=== PATIENT | male | born 1970 | race Caucasian/White ===

== ENCOUNTER → 2019-02-24 | Outpatient (CLI) | payer BC ==
--- NOTE | 2019-02-24 16:42 | XR ---
EXAMINATION TYPE: XR chest 2V DATE OF EXAM: 02/24/2019 COMPARISON: NONE HISTORY: Chest pain and shortness of breath TECHNIQUE: Frontal and lateral views of the chest are obtained. FINDINGS: There is no focal air space opacity, pleural effusion, or pneumothorax seen. The cardiac silhouette size is within normal limits. The osseous structures are intact. IMPRESSION: No acute cardiopulmonary process.
== END | disposition home or self-care (01) ==
LOC: RADXRYALE 13:58
PROVIDERS: ATTEND Physician Assistant Medical
DX: R07.9 Chest pain, unspecified (principal)
CPT/HCPCS: 71046

== ENCOUNTER → 2022-04-19 | Outpatient (CLI) | payer BC ==
--- NOTE | 2022-04-20 07:59 | XR ---
EXAMINATION TYPE: XR cervical spine comp DATE OF EXAM: 04/19/2022 COMPARISON: NONE HISTORY: Pain TECHNIQUE: Four views are submitted. FINDINGS: The odontoid is intact. There are no compression deformities. The prevertebral soft tissue structur es are within normal limits. Severe degenerative disc disease C5-C6 with spurring. IMPRESSION: 1. Severe degenerative disc disease C5-C6. Recommend follow-up MRI..
--- NOTE | 2022-04-20 08:07 | XR ---
EXAMINATION TYPE: XR shoulder complete LT DATE OF EXAM: 04/19/2022 COMPARISON: NONE HISTORY: Pain TECHNIQUE: Two views are submitted. FINDINGS: The osseous structures are intact. There is no acute fracture or dislocation. The AC joint is maint ained. IMPRESSION: 1. Osseous structures intact. If symptoms persist consider MRI.
== END | disposition home or self-care (01) ==
LOC: RADXRYALE 15:57
PROVIDERS: ATTEND Physician Assistant
DX: M50.122 Cervical disc disorder at C5-C6 level with radiculopathy (principal); M25.512 Pain in left shoulder
CPT/HCPCS: 72050

== ENCOUNTER → 2022-05-02 | Outpatient (CLI) | payer BC ==
--- NOTE | 2022-05-03 00:45 | MR ---
EXAMINATION TYPE: MR cervical spine wo con DATE OF EXAM: 05/02/2022 COMPARISON: None HISTORY: Neck pain that radiates into left shoulder down arm for 1 month Multiplanar multiecho imaging of the cervical spine with no contrast. There is mild straightening of the vertebra. There is some disc space narrowing at C5-6 and C6-7. No compression fracture. Cervical spinal cord has normal signal pattern. No edema. There is small ribbon tier ior disc bulging at C3-4 and C5-6 and C6-7. There is developmentally adequate spinal canal. Canal tosha sures 9 mm at C3-4. Canal measures 9.3 mm at C5-6. No spinal stenosis. Disc bulging is larger at C6-7 . The brainstem is intact. Facet joints are intact. No focal bone destruction. IMPRESSION: Mild spondylotic changes. No spinal stenosis. Concentric posterior disc herniation at C6-7 without sp inal stenosis.
== END | disposition home or self-care (01) ==
LOC: RADMRIMAIN 09:00
PROVIDERS: ATTEND Physician Assistant
DX: M50.123 Cervical disc disorder at C6-C7 level with radiculopathy (principal); M47.22 Other spondylosis with radiculopathy, cervical region
CPT/HCPCS: 72141